=== PATIENT | female | born 1955 | race Caucasian/White ===

== ENCOUNTER → 2016-10-07 06:43 | Outpatient (CLI) | payer BC ==
--- NOTE | ~2016-10-07 | HEMODYNAMI ---
PATIENT:YONAS HERCULES MEDICAL RECORD: [id number] : 53 [id number] ADMISSION DATE: 10/07/16 Generatedon:10/07/201610:35 Patient name: YONAS HERCULES Patient #: [id number] SSN: : 1955 Date of study: 10/07/2016 Page: Of Hemodynamic Procedure Report Patient Data Patient Demographics Procedure consent was obtained First Name: YONAS Gender: Female Last Name: DIOMEDES : 1955 Middle Initial: GOVIND Age: 61 year(s) Patient #: [id number] Race: Unknown Additional ID: [id number] Contact details [address]: [address] [place] [address] State: [place] City: [place] Zip code: [address] Admission Admission Data Admission Date: 10/07/2016 Admission Time: 6:43 Procedure Procedure Types Cath Procedure Peripheral Cath Diagnostic Procedure Venography Extremity Left Lower Ext. Venagram Procedure Description Procedure Date Procedure Date: 10/07/2016 Procedure Start Time: 10:10 Procedure Staff Name Function Elver Elliott MD Performing Physician Tiffany Anderson RT Scrub Teresa Rollins RN Monitor Amaris Bledsoe RN Nurse Mat Magdaleno RT Monitor Procedure Data Cath Procedure Fluoroscopy Diagnostic fluoroscopy Total fluoroscopy Time: 1.6 time: 1.6 min min Contrast Material Contrast Material Type Amount (ml) Isovue 300 25 Isovue 300 90 Hemodynamics Rest Pre Cath Intra NCS Post Cath Procedure Log Time Note 10:02:11 Amaris Bledsoe RN sent for patient. Start room use. 10:02:20 Time tracking: Regular hours 10:02:25 Plan of Care:Hemodynamics will remain stable., Cardiac rhythm will remain stable., Comfort level will be maintained., Respiratory function will remain adequate., Patient/ family verbilizes understanding of procedure., Procedure tolerated without complication., Recovers from procedure without complications.. 10:02:39 Patient received from Outpatients to IR Alert and oriented. Tansferred to table in Supine position. 10:02:41 Warm blankets applied, and kb hugger turned on for patient comfort. 10:02:43 Correct patient and procedure confirmed by team. 10:02:48 Signed procedure consent form obtained from patient. 10:03:07 Pre-procedure instructions explained to patient. 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 He requests local only no sedation. 10:04:39 Lab results completed and on chart. 10:04:46 Physician arrived 10:04:47 --------ALL STOP TIME OUT------ 10:04:49 Final Timeout: patient, procedure, and site verified with staff and physician. All members of the team are in agreement. 10:04:52 Left groin site verified by team. 10:05:04 Left foot site verified by team. 10:05:25 Physical assessment completed. ASA score P 2 - A patient with mild systemic disease as per Elver Elliott MD. 10:05:30 Sedation plan: Local Anesthetic Lidocaine 10:06:12 IV started left foot per Amaris Bledsoe RN #20 angiocath. 10:07:33 Contrast injected via left foot IV per Dr Elliott. Images taken. Decision made to prep left groin. 10:08:43 Left groin prepped and draped in sterile fashion. 10:09:54 Use device set IR Diagnostic 10:09:55 Bag Decanter opened to sterile field. 10:09:56 Sterile Angiographic Pack opened to sterile field. 10:10:19 Left groin area was prepped with chlora-prep and draped in sterile fashion 10:10:21 Sharps counted by scrub and verified by R.N. 10:10:22 Alarms reviewed by R. N. 10:10:26 Procedure started. 10:10:28 Full Disclosure recording started 10:10:32 Local anesthetic to left femoral vein with Lidocaine 1% by Elver Elliott MD.INITIAL ACCESS ONLY 10:20:59 Contrast amount:Isovue 300 90ml. 10:22:14 Procedure ended.(Physican Out) 10:22:28 Fluoroscopy time 01.60 minutes. 10:22:34 Contrast amount:Isovue 300 25ml. 10:22:36 Sharps counted by scrub and verified by R.N. 10:22:38 Insertion/operative site no bleeding no hematoma. 10:22:44 Post-op/insertion site Left Femoral vein dressed using a 4 x 4 and Tegaderm. 10:22:48 Post left femoral vein:stable 10:22:50 Post Procedure Pulses reassessed and unchanged 10:22:53 Post procedure instruction explained to patient.Patient verbalizes understanding. 10:23:20 Procedure and supply charges have been captured, reviewed, submitted and are correct. 10:23:23 Report given to Outpatients. 10:23:26 Patient transfered to Outpatients with Bed. Device Usage Item Name Manufacture Quantity Catalog Hospital Part Current Minimal Lot# / Number Charge Number Stock Stock Serial# Code Bag Decanter Microtek 1 [id number] [employer] Sterile Cardinal 1 [id number] Angiographic Health Pack Signature Audit Wright Stage Time Signature Unsigned Intra-Procedure 10/07/2016 Mat 10:35:23 AM Sharla RT (R) (CV) Signatures Monitor : Teresa Rollins RN Signature : Date : Time : Monitor : Mat Signature : Sharla RT Date : Time : [address] [address]
[2016-10-07 09:48] LABS: CALCIUM 9.1 mg/dL (8.5-10.1); CARBON DIOXIDE 27.9 mmol/L (21.0-32.0); CREATININE - SERUM 1.2 mg/dL (0.6-1.3); POTASSIUM - SERUM 4.9 mmol/L (3.5-5.1)
--- NOTE | 2016-10-07 11:19 | NUR ---
1119-called to IR. 1120-left groin dressing dry and intact, no bleeding, swelling or hematoma. left foot iv site without bleeding or swelling. pedal pulse 2+. denies pain. 1121-sitting up, denies dizziness. resp with ease. Nikolas Shah APN for [facility] here to assess patient and ok to discharge.
== END | disposition home or self-care (01) ==
LOC: D.OPS 06:43 → D.RAD 09:00 → D.OPS 09:00
PROVIDERS: Radiology Diagnostic Radiology
DX: I83.813 Varicose veins of bilateral lower extremities with pain (principal); I87.009 Postthrombotic syndrome without complications of unspecified extremity

== ENCOUNTER → 2019-01-28 13:31 | Outpatient (CLI) | payer BC | END | disposition home or self-care (01) | LOC: D.US 13:31 | PROVIDERS: ATTEND Family Medicine | DX: R60.0 Localized edema (principal) ==

== ENCOUNTER → 2019-04-06 12:15 | Outpatient (CLI) | payer BC ==
[~2019-04-06 12:15] MED LIST: ASCORBIC ACID500 MG PO; CIALIS2.5 MG PO; CLARITIN 10 MG10 MG PO; DILAUDID4 MG PO; GLUCOPHAGE XR750 MG PO; HYDROCODON-ACE1 EA10 PO; LIPITOR10 MG PO; OMEPRAZOLE40 MG PO; VISTARIL50 MG PO; VITAMIN D31000 UNIT PO; VOLTAREN100 GM TOPICAL; XARELTO15 MG PO; ZOFRAN ODT4 MG/UDTAB PO; ZYLOPRIM300 MG PO
[2019-04-30 09:09] VITALS: BMI 34.1
== END | disposition home or self-care (01) ==
LOC: D.MRI 12:15
PROVIDERS: ATTEND Orthopaedic Surgery
DX: M75.121 Complete rotator cuff tear or rupture of right shoulder, not specified as traumatic (principal)

== ENCOUNTER → 2019-04-27 07:15 | Outpatient (CLI) | payer MEDICARE, BC ==
[2019-04-30 09:09] VITALS: BMI 34.1
== END | disposition home or self-care (01) ==
LOC: D.MRI 07:15
PROVIDERS: ATTEND Orthopaedic Surgery
DX: S46.112D Strain of muscle, fascia and tendon of long head of biceps, left arm, subsequent encounter (principal)

== ENCOUNTER 2019-04-30 08:15 | Day surgery (SDC) | payer MEDICARE, BC ==
[2019-04-29 11:54] LABS: HEMATOCRIT 54.5 % (42.0-54.0); HEMOGLOBIN 18.3 g/dL (13.5-17.5); MCH 32.9 pg (26.0-34.0); MCHC 33.6 g/dL (31.0-37.0); MCV 97.8 fL (80.0-100.0); MEAN PLATELET VOLUME 9.8 fL (7.4-10.4); RBC 5.57 10x6/uL (4.20-6.10); RDW 13.4 % (11.5-14.5); WBC 12.5 10x3/uL (4.8-10.8)
[2019-04-29 12:09] LABS: ANION GAP 11.2 mmol/L (8-16); CALCIUM 9.2 mg/dL (8.5-10.1); CARBON DIOXIDE 29.1 mmol/L (21.0-32.0); CREATININE - SERUM 1.1 mg/dL (0.6-1.3); POTASSIUM - SERUM 4.3 mmol/L (3.5-5.1)
[~2019-04-30] VITALS: Ht 188 cm; Wt 120.2 kg
[2019-04-30 09:09] VITALS: BP 146/81; Ht 188 cm; Wt 120.2 kg
[2019-04-30] MEDS ORDERED: XARELTO15 MG PO (09:39)
[2019-04-30] MEDS ORDERED: ZYLOPRIM300 MG PO (09:39)
[2019-04-30] MEDS ORDERED: GLUCOPHAGE XR750 MG PO (09:40)
[2019-04-30] MEDS ORDERED: OMEPRAZOLE40 MG PO (09:40)
[2019-04-30] MEDS ORDERED: CIALIS2.5 MG PO (09:41)
[2019-04-30] MEDS ORDERED: CLARITIN 10 MG10 MG PO (09:41)
[2019-04-30] MEDS ORDERED: LIPITOR10 MG PO (09:41)
[2019-04-30] MEDS ORDERED: HYDROCODON-ACE1 EA10 PO (09:42)
[2019-04-30] MEDS ORDERED: VOLTAREN100 GM TOPICAL (09:42)
[2019-04-30] MEDS ORDERED: ASCORBIC ACID500 MG PO (09:43)
[2019-04-30] MEDS ORDERED: VITAMIN D31000 UNIT PO (09:44)
[2019-04-30 10:23] LABS: BASOPHILS 0.2 % (0-2); EOSINOPHILS 0.4 % (0-7); HEMATOCRIT 54.4 % (42.0-54.0); HEMOGLOBIN 18.2 g/dL (13.5-17.5); IMMATURE GRANULOCYTES 0.4 % (0-5); MCH 32.9 pg (26.0-34.0); MCHC 33.5 g/dL (31.0-37.0); MCV 98.2 fL (80.0-100.0); MEAN PLATELET VOLUME 9.4 fL (7.4-10.4); MONOCYTES 5.8 % (2-11); NEUTROPHILS 73.2 % (40-80); PLATELET COUNT 233 10x3/uL (130-400); RBC 5.54 10x6/uL (4.20-6.10); RDW 13.7 % (11.5-14.5); WBC 10.8 10x3/uL (4.8-10.8)
[2019-04-30] MEDS ORDERED: ZOFRAN ODT4 MG/UDTAB PO (10:34)
[2019-04-30] MEDS ORDERED: DILAUDID4 MG PO (10:34)
[2019-04-30] MEDS ORDERED: VISTARIL50 MG PO (10:34)
--- NOTE | 2019-04-30 15:52 | OP ---
PATIENT NAME: YONAS MCCORMACK MEDICAL RECORD: [id number] :53 LOCATION:[facility] ADMISSION DATE: SURGEON: SHER HINKLE DO DATE OF OPERATION: 04/30/2019 PROCEDURE PERFORMED: Right shoulder rotator cuff repair, biceps tenodesis, labral debridement, subacromial decompression, distal clavicle excision. PREOPERATIVE DIAGNOSES: Right shoulder massive rotator cuff tear, superior labral anterior-posterior tear, subacromial impingement and acromioclavicular joint arthritis. POSTOPERATIVE DIAGNOSES: Right shoulder massive rotator cuff tear, superior labral anterior-posterior tear, subacromial impingement and acromioclavicular joint arthritis. INDICATIONS: Mr. Mccormack is a 64-year-old male who fell walking his dog a couple of weeks ago. He had extensive right arm pain and left elbow pain. He ended up having a radial head fracture, minimally displaced on the left and a massive rotator cuff tear and a SLAP tear on the right. He chose to fix the rotator cuff, in fact caused him the most pain. He was aware of the risks including infection, bleeding, damage to nerves and vessel, retear, need for further surgery, fracture, loss of use of the arm and even and he signed the consent. SURGEON: Sher Hinkle DO DESCRIPTION OF PROCEDURE: The patient was taken to the operative suite; given 900 mg of clindamycin prior to going to the OR. I was assisted by Mery Patrick and René Anderson, both certified assistant in nursing. Once the patient was positioned in left lateral decubitus with the right shoulder up, he was sedated and LMA was placed. The right shoulder was then prepped and draped in sterile fashion. A time-out was performed, everyone was in agreeance with the correct side, site, patient and procedure. We then had the posterior shoulder entered with an 18-gauge spinal needle and insufflated the posterior shoulder with 60 mL of normal saline. A 11-blade scalpel was then used to establish the portal and the trocar was entered into the shoulder joint. The scope was then entered and we saw the massive rotator cuff tear, supraspinatus and infraspinatus. The subscapularis was intact. The SLAP tear was noted to be quite prominent and a type 3. The anterior portal was established with an 18-guage spinal needle and 11-blade scalpel and the trocar was brought in through the anterior portal and a burner brought in, a bicep tenotomy done at that point as well as labral debridement. The rest of the shoulder was inspected and no loose bodies were seen in the inferior gutter. The cartilage was also in good repair. Once the cartilage was in good repair, the scope was switched to the subacromial space. The lateral port was established with an 18-guage spinal needle and 11-blade scalpel and a subacromial decompression was done as well as the distal clavicle excision opening the AC joint, up to approximately 7-mm. The spur on the distal lateral acromion was removed. We then opened over the lateral shoulder, approximately 4 cm to the acromion and careful dissection was made down to the tear, it was noted to be a massive tear. Decortication was done on the humerus and 3 anchors were placed for medial row. The cuff was then bent through and brought over to form a nice repair, two lateral row anchors. The anterior humerus was then addressed. An incision was made on the anterior humerus. Careful dissection was made down to the long head of the biceps tendon. This OPERATIVE REPORT [id number] DIOMEDES,YONAS FAUST was removed out of the incision and whipstitched and then a 2.9 JuggerLoc anchor was placed in the anterior humerus. Then, the whipstitch sutures were tied to the JuggerLoc anchor and then cinched down, bicep placed nicely against the humerus. The excess suture was cut and then tied and then a free needle went through the biceps tendon and tied down the excess tendon and suture was then cut. The site was irrigated as well as the rotator cuff repair site and the both were closed with 2-0 Vicryl in an inverted interrupted fashion, 4-0 Monocryl ran on the skin. The anterior and posterior portals with 4-0 Monocryl in an inverted interrupted fashion with Dermabond placed on the skin. He was then awakened and taken to recovery in stable condition. BLOOD LOSS: Minimal. COMPLICATIONS: None. TRANSINT:[id number] Voice Confirmation ID: [id number] DOCUMENT ID: [id number] SHER HINKLE DO at 3206 CC: [id number] DICTATION DATE: 04/30/19 4525 BATCH UNIT TREATER: 04/30/19 1522 [facility] [address] [place] [id number]
== END 2019-04-30 17:10 | disposition home or self-care (01) ==
LOC: D.OPS 08:15 → D.PAN 09:50 → D.OPS 09:50
PROVIDERS: Anesthesiology; ATTEND Orthopaedic Surgery
DX: M75.101 Unspecified rotator cuff tear or rupture of right shoulder, not specified as traumatic (principal); S43.431A Superior glenoid labrum lesion of right shoulder, initial encounter; M75.41 Impingement syndrome of right shoulder; M19.011 Primary osteoarthritis, right shoulder; X58.XXXA Exposure to other specified factors, initial encounter

== ENCOUNTER → 2019-12-13 21:39 | Outpatient (CLI) | payer MEDICARE, BC ==
[2019-04-30 09:09] VITALS: BMI 34.1
== END | disposition home or self-care (01) ==
LOC: D.LABREF 21:39
PROVIDERS: ATTEND Orthopaedic Surgery
DX: M17.11 Unilateral primary osteoarthritis, right knee (principal)

== ENCOUNTER 2019-12-15 14:42 | Inpatient (IN) | payer MEDICARE, BC ==
[~2019-12-15] VITALS: Ht 188 cm; Wt 119.1 kg
[~2019-12-15 14:42] MED LIST changes: +VITAMIN D1000 UNIT PO; -VITAMIN D31000 UNIT PO
[2019-12-29 09:59] LABS: ANION GAP 7.6 mmol/L (8-16); CALCIUM 9.4 mg/dL (8.5-10.1); CARBON DIOXIDE 31.8 mmol/L (21.0-32.0); CREATININE - SERUM 1.3 mg/dL (0.6-1.3); POTASSIUM - SERUM 4.4 mmol/L (3.5-5.1)
[2019-12-29 10:12] LABS: BASOPHILS 0.2 % (0-2); EOSINOPHILS 1.7 % (0-7); HEMATOCRIT 55.7 % (42.0-54.0); HEMOGLOBIN 18.4 g/dL (13.5-17.5); IMMATURE GRANULOCYTES 0.3 % (0-5); MCH 32.4 pg (26.0-34.0); MCV 98.1 fL (80.0-100.0); MEAN PLATELET VOLUME 9.2 fL (7.4-10.4); MONOCYTES 5.4 % (2-11); NEUTROPHILS 71.4 % (40-80); RBC 5.68 10x6/uL (4.20-6.10); RDW 13.5 % (11.5-14.5); WBC 8.6 10x3/uL (4.8-10.8)
[2019-12-29 10:15] LABS: APTT 27.5 SECONDS (22.8-39.4); INR 1.08 (0.85-1.17)
--- NOTE | 2019-12-29 10:23 | NUR ---
POX- 96% HR- 68 RR-16 BP RA- 114/84
[2019-12-29 10:26] LABS: PLATELET COUNT 170 10x3/uL (130-400)
[2019-12-29] MEDS ORDERED: XARELTO15 MG PO (10:26)
[2019-12-29] MEDS ORDERED: HYDROCODON-ACE1 EA10 PO (10:27)
[2019-12-29] MEDS ORDERED: ACETAMINOPHEN500 M1 PO (10:28)
[2019-12-29] MEDS ORDERED: DEPO TESTOSTERONE IM (10:29)
[2019-12-29] MEDS ORDERED: ASCORBIC ACID500 MG PO (10:30)
[2019-12-29] MEDS ORDERED: OS-CAL500 MG PO (10:30)
[2019-12-29] MEDS ORDERED: MUPIROCIN22 GM TOPICAL (10:31)
[2019-12-29 11:14] LABS: BILIRUBIN NEGATIVE (NEGATIVE); GLUCOSE NEGATIVE (NEGATIVE); KETONE NEGATIVE (NEGATIVE); NITRITE NEGATIVE (NEGATIVE); UROBILINOGEN NORMAL (NORMAL)
[2020-01-04 10:12] VITALS: BP 136/76; BMI 34.5
--- NOTE | 2020-01-04 12:28 | NUR ---
1225 BLOCK HAS BEEN COMPLETED. PT. AWAKE, AT SIDE. O2 2L NC. CALL LIGHT AT BEDSIDE.
--- NOTE | 2020-01-04 12:41 | NUR ---
1240 STATES LEG STILL FEELS NORMAL. O2 2L NC. MONITORING CONTINUES.
--- NOTE | 2020-01-04 12:57 | NUR ---
1255 STATES CANNOT TELL HE HAS HAD A BLOCK, MOVES LEGS WELL IN BED. O2 AT 2L NC. STATES HIS HEART RATE IS HIGHER THAN NORMAL. AT SIDE.
--- NOTE | 2020-01-04 13:45 | NUR ---
PLASMA BLADE AND AQUAMANTYS USED. CAUTERY PAD PLACED ON LEFT THIGH. LOT#[id number] EXP.03/17/2021
[2020-01-04 16:40] VITALS: BP 133/61
[2020-01-04 18:47] VITALS: BP 136/60; Ht 188 cm; Wt 119.1 kg
[2020-01-04 19:30] VITALS: BP 124/60
--- NOTE | 2020-01-04 21:10 | NUR ---
PATIENT IS RESTING COMFORTABLY IN BED. HE IS ALERT AND ORIENTED. CPM ON RIGHT LEG. IV FLUIDS ARE RUNNING. HE IS ON ROOM AIR. HE HAS NO COMPLAINTS AT THIS TIME.
[2020-01-05 00:11] VITALS: BP 104/45
[2020-01-05 04:01] VITALS: BP 142/79
--- NOTE | 2020-01-05 05:18 | NUR ---
PATIENT SLEPT SOME LAST NIGHT. CPM TAKEN OFF LAST NIGHT. PAIN PILL GIVEN THIS AM, AND THEN CPM APPLIED. WE WILL CONTINUE TO MONITOR PAIN LEVEL.
[2020-01-05 07:20] LABS: ANION GAP 11.2 mmol/L (8-16); CALCIUM 8.1 mg/dL (8.5-10.1); CARBON DIOXIDE 26.7 mmol/L (21.0-32.0); CREATININE - SERUM 1.2 mg/dL (0.6-1.3); HEMATOCRIT 47.6 % (42.0-54.0); HEMOGLOBIN 15.6 g/dL (13.5-17.5); MAGNESIUM - SERUM 1.5 mg/dL (1.8-2.4); MCH 31.2 pg (26.0-34.0); MCHC 32.8 g/dL (31.0-37.0); MCV 95.2 fL (80.0-100.0); MEAN PLATELET VOLUME 8.9 fL (7.4-10.4); NEUTROPHILS 78.5 % (40-80); PLATELET COUNT 202 10x3/uL (130-400); POTASSIUM - SERUM 3.9 mmol/L (3.5-5.1)
--- NOTE | 2020-01-05 07:29 | OP ---
PATIENT NAME: YONAS MCCORMACK MEDICAL RECORD: [id number] :53 [facility] ADMISSION DATE:01/04/20 SURGEON: SHER HINKLE DO DATE OF OPERATION: 01/04/2020 PROCEDURE PERFORMED: Right total knee arthroplasty. PREOPERATIVE DIAGNOSIS: Right knee osteoarthritis. POSTOPERATIVE DIAGNOSIS: Right knee osteoarthritis. INDICATIONS: Mr. Mccormack is a 64-year-old male who has had right knee pain for quite some time. Had ACL done over 20 years ago and his right knee pain was getting worse and he had tried all manner of nonoperative treatment including injections, physical therapy and is affecting his activities of daily living. He wanted something done surgically. He is aware of the risks including infection, bleeding, damage to nerve or vessel damage, need for further surgery, continued pain, failure of implants, fracture, blood clots, and even , damage to nerves and vessels in the area. He signed the consent. SURGEON: Sher Hinkle DO DESCRIPTION OF PROCEDURE: The patient was taken to the operative suite, laid in supine position and block by anesthesia in the preoperative area and then taken to the operative suite, given 3 grams Ancef and 80 mg gentamicin preoperatively. He was not given TXA due to blood clot history. He was then sedated and LMA was placed. The right lower extremity was then prepped and draped in sterile fashion. Time out was performed. Everyone was in agreement with the correct side, site, patient, and procedure. We then began by marking out the incision on the anterior knee, made careful dissection down to the capsule and did a medial parapatellar approach. We opened up the knee, removed part of fat pad and milled down the patella. I then drilled into the femur intramedullary canal by the intramedullary guide and cut the distal femur off of it. I then exposed the proximal tibia and cut the proximal tibia as well. Based off the lateral side, this is the lowest side. We then removed that and removed the menisci and it was tight medially. I did release of the MCL. A 10 extension block fit well at that time and then we flexed the knee up and sized the femur to be an 80. I then used the 4-in-1 cutting block and cut the cuts, removed the excess bone. I then floated in the tibia and marked rotation, then drilled the holes for the lug holes in the femur and the holes for the patella and then exposed the tibia sized to be an 83. I removed the old ACL screw in the tibia that was in there and then reamed and punched the tibia with 80 mm fin. Cement was then mixed and placed on the implant and the tibia impacted in place. Excess cement was removed. The femur was then impacted on and the 10 Poly was put in between. He was then brought to extension and the patella was put on as well and the squeezer was used. Excess cement was removed from the patella and the tibia. At that time, a 10% permanent iodine solution with 500 mL normal saline was left in the knee for 3 minutes. This was then irrigated out with over a liter of normal saline. We then trialed the 12 poly; 12 poly fit very well. We then anterior stabilized 12 poly and put that and locked it into place, had good range of motion and good stability in flexion and extension. We then put in Melissa to vancomycin and tobramycin powder in the knee and closed the capsule with #1 pop off Vicryl in [id number] fashion. This was done by myself and Jaime Patrick, certified surgical nursing assistants teacher and then the skin was closed by Jaime Patrick with 2-0 Vicryl in inverted interrupted fashion. Zipline placed on OPERATIVE REPORT [id number] YONAS MCCORMACK the knee. He was dressed with Adaptic, 4 x 4s, ABD, Webril, Tex wrap, awakened and taken to recovery in stable condition. Blood loss approximately 350 mL. He was taken to recovery in stable condition. TRANSINT:[id number] Voice Confirmation ID: [id number] DOCUMENT ID: [id number] SHER HINKLE DO at 0729 CC: [id number] DICTATION DATE: 01/04/20 1502 SEW OUT OPERATOR: 01/04/20 6499 ADM IN [facility] [address] [place] [address]
--- NOTE | 2020-01-05 07:49 | NUR ---
PATIENT ALERT AND ORIENTED. RESTING QUIETLY IN BED. RESPIRATIONS EVEN NON LABORED. NO SIGNS OF DISTRESS NOTED. ON ROOM AIR. IV RIGHT WRIST NORMAL SALINE 50ML/HR. CATRACHITO WRAP ON RIGHT LEG. ON CPM. SCD ON LEFT LOWER EXTREMITY. DENIES FURTHER NEEDS. SIDE RAILS UP X3. CALL LIGHT IN REACH. WILL CONTINUE TO MONITOR FOR SAFETY.
[2020-01-05 08:04] VITALS: BP 135/63
[2020-01-05 13:41] VITALS: BP 139/64
--- NOTE | 2020-01-05 14:25 | NUR ---
PATIENT ALERT AND ORIENTED RESTING IN BED WITH EYES OPEN. RESPIRATIONS EVEN NON LABORED. NO SIGNS OF DISTRESS NOTED. DENIES FURTHER NEEDS. SIDE RAILS UP X3. CALL LIGHT IN REACH. WILL CONTINUE TO MONITOR FOR SAFETY.
--- NOTE | 2020-01-05 18:28 | NUR ---
I have reviewed this patient and I concur with the Shift Assessment completed by the Licensed Practical Nurse today this shift.
--- NOTE | 2020-01-05 18:48 | NUR ---
PATIENT ALERT AND ORIENTED RESTING QUIETLY IN BED WITH EYES CLOSED. RESPRATIONS EVEN NONLABORED. NO SIGNS OF DISTRESS NOTED. DENIES FURTHER NEEDS. SIDE RAILS UP CALL LIGHT IN REACH. WILL CONTINUE TO MONITOR FOR SAFETY.
[2020-01-05 20:00] VITALS: BP 129/46
--- NOTE | 2020-01-05 20:00 | NUR ---
PATIENT RESTING IN BED WATCHING TV. NO S/S OF ACUTE DISTRESS. PATIENT C/O PAIN IN RIGHT KNEE AND HIP, DILAUDID WILL BE GIVEN. PATIENT HAS A RIGHT WRIST IV, 1/2 NORMAL SALINE @ 50 ML/HR. IV IS PATENT WITHOUT REDNESS, SWELLING, OR TENDERNESS. PATIENT IS POST-OP DAY 1 OF A RIGHT KNEE, CATRACHITO BANDAGE AND DRESSING C/D/I. PATIENT HAS A CATRACHITO WRAP ON LEFT LEG. PATIENT USES URINAL AND IS A X1 ASSIST TO THE BATHROOM. CALL LIGHT WITHIN REACH. WILL CONTINUE TO MONITOR.
--- NOTE | 2020-01-05 22:43 | NUR ---
I have reviewed this patient and I concur with the Shift Assessment completed by the Licensed Practical Nurse today this shift.
--- NOTE | 2020-01-06 00:58 | MORECARE ---
CASE MANAGEMENT DISCHARGE SUMMARY PATIENT: YONAS HERCULES UNIT: [id number] ADM DATE: 01/04/20 AGE: 64 : 53 SEX: M ROOM/BED: D.1207 AUTHOR: SUREKHA RUELAS PHYSICIAN: REFERRING PHYSICIAN: MAE HINKLE DO DATE OF SERVICE: 01/06/20 Discharge Plan Patient Name: YONAS HERCULES [facility] [facility] 1955 Planned Disposition: Anticipated Discharge Date: Discharge Date: Expected LOS: Initial Reviewer: [email or web address] Initial Review Date: 01/04/2020 Generated: 01/06/20 1:57 am Patient Name: YONAS HERCULES Page [id number] at 0058 All edits/amendments must be made on the electronic document DICTATION DATE: 01/06/2056 [employer] TECHNICIAN: CORBIN 01/06/2056 RPT#: [id number] DC DATE: STATUS: ADM IN [facility] [address] [place] [address] END OF REPORT
[2020-01-06 04:00] VITALS: BP 123/68
--- NOTE | 2020-01-06 05:15 | NUR ---
PATIENT GIVEN DILAUDID AND PLACED ON CPM MACHINE. NO S/S OF ACUTE DISTRESS. NO C/O AT THIS TIME. CALL LIGHT WITHIN REACH. WILL CONTINUE TO MONITOR.
[2020-01-06 05:17] LABS: HEMATOCRIT 45.6 % (42.0-54.0); HEMOGLOBIN 15.2 g/dL (13.5-17.5); LYMPHOCYTES 15.6 % (15-50); MCH 31.7 pg (26.0-34.0); MCHC 33.3 g/dL (31.0-37.0); MEAN PLATELET VOLUME 8.4 fL (7.4-10.4); NEUTROPHILS 74.1 % (40-80); PLATELET COUNT 186 10x3/uL (130-400); RDW 13.3 % (11.5-14.5)
[2020-01-06 05:22] LABS: ANION GAP 9.9 mmol/L (8-16); CALCIUM 8.1 mg/dL (8.5-10.1); CREATININE - SERUM 1.2 mg/dL (0.6-1.3); MAGNESIUM - SERUM 1.6 mg/dL (1.8-2.4); POTASSIUM - SERUM 3.9 mmol/L (3.5-5.1)
--- NOTE | 2020-01-06 07:10 | NUR ---
PATIENT ALERT AND ORIENTED. RESTING QUIETLY IN BED WITH EYES OPEN. REPIRATIONS EVEN NON LABORED. NO SIGNS OF DISTRESS NOTED. CATRACHITO WRAP ON RIGHT LEG AND UPPER LEFT LEG. CLEAN DRY IN TACT. IV RIGHT WRIST NORMAL SALINE 50ML/HR. PATENT. SCDS ON LEFT LEG. ON CPM. DENIES FURHTER NEEDS. SIDE RAILS UP X3. CALL LIGHT IN REACH. WILL CONTINUE TO MONITOR FOR SAFETY.
[2020-01-06 07:52] VITALS: BP 152/72
--- NOTE | 2020-01-06 11:45 | NUR ---
PATIENT ALERT AND ORIENTED. FAMILY AT BEDSIDE. RESPIRATIONS EVEN NON LABORED. NO SIGNS OF DISTRESS NOTED. LAYING QUIETLY IN BED WATCHING TV. LOW MAG 1.6. PO MAG GIVEN AND TOLERATED. DENIES FURTHER NEEDS. SIDE RAILS UP. CALL LIGHT IN REACH. WILL CONTINUE TO MONITOR FOR SAFETY.
[2020-01-06] MEDS ORDERED: oxyCODONE IR PO (13:11)
[2020-01-06] MEDS ORDERED: VISTARIL50 MG PO (13:11)
--- NOTE | 2020-01-06 14:36 | MORECARE ---
CASE MANAGEMENT DISCHARGE SUMMARY PATIENT: YONAS HERCULES UNIT: [id number] ADM DATE: 01/04/20 AGE: 64 : 53 SEX: M ROOM/BED: D.1207 AUTHOR: SUREKHA RUELAS PHYSICIAN: REFERRING PHYSICIAN: MAE HINKLE DO DATE OF SERVICE: 01/06/20 Discharge Plan Patient Name: YONAS HERCULES [facility] [facility] 1955 Planned Disposition: Home or Self Care Anticipated Discharge Date: Discharge Date: Expected LOS: Initial Reviewer: [email or web address] Initial Review Date: 01/04/2020 Generated: 01/06/20 3:36 pm DCPIA - Discharge Planning Initial Assessment Updated by [email or web address]: Uyen Bowden on 01/06/20 2:35 pm * Is the patient Alert and Oriented? Yes * How many steps to enter\exit or inside your home? * PCP Maria Teresa URBANO * Pharmacy [facility] * Preadmission Environment Home with Family * ADLs Independent * Equipment Rolling Walker Shower Chair Walker * Other Equipment CPM * List name and contact numbers for known caregivers / representatives who currently or will assist patient after discharge: RAFA ( SPOUSE) [phone] * Verbal permission to speak to the caregivers and representatives has been obtained from the patient. N/A * Community resources currently utilized None * Additional services required to return to the preadmission environment? Yes * Can the patient safely return to the preadmission environment? Yes * Has this patient been hospitalized within the prior 30 days at any hospital? No Last DP export: 01/05/20 11:58 p Patient Name: YONAS HERCULES Page [id number] at 1436 All edits/amendments must be made on the electronic document DICTATION DATE: 01/06/20 1436 MANAGER LABORATORY: CORBIN 01/06/20 1436 RPT#: [id number] DC DATE: STATUS: ADM IN [facility] [address] [place] [address] END OF REPORT
--- NOTE | 2020-01-06 14:43 | MORECARE ---
CASE MANAGEMENT DISCHARGE SUMMARY PATIENT: YONAS HERCULES UNIT: [id number] ADM DATE: 01/04/20 AGE: 64 : 53 SEX: M ROOM/BED: D.1207 AUTHOR: SUREKHA RUELAS PHYSICIAN: REFERRING PHYSICIAN: MAE HINKLE DO DATE OF SERVICE: 01/06/20 Discharge Plan Patient Name: YONAS HERCULES Facility: [facility]:[place] : 1955 Planned Disposition: Home or Self Care Anticipated Discharge Date: Discharge Date: Expected LOS: Initial Reviewer: [email or web address] Initial Review Date: 01/04/2020 Generated: 01/06/20 3:42 pm Comments DCP- Discharge Planning Updated by [email or web address]: Uyen Bowden on 01/06/20 1:[address] Patient Name: YONAS HERCULES Admission Status: Elective Accout number: [id number] Admission Date: 01-04-2020 : 1955 Admission Diagnosis:UNILATERAL PRIMARY OSTEOARTHRITIS, RIGHT KNEE Attending: MAE HINKLE Current LOS: 2 Anticipated DC Date: Planned Disposition: Home or Self Care Primary Insurance: MEDICARE A & B Discharge Planning Comments: CM met with patient to complete initial dc planning assessment. CM educated patient on the CM role and verbal consent given by patient to complete assessment. Patient lives at home with his spouse where he is independent with his care. At discharge patient plans to return home and feels this is a safe discharge. 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 CM discussed availability of home health, rehab services, and medical equipment. [facility]. I called and spoke with Kavin, his first appointment is set for 12:30 on 01/07/20. The patient will get a copy of his prescription and appointment time. Patient has all of his DME set up and delivered. Patient denied known discharge needs at this time. CM will continue to follow and will assist as needed with dc plans/needs. Mental Health Director: Uyen Bowden DCPIA - Discharge Planning Initial Assessment Updated by [email or web address]: Uyen Bowden on 01/06/20 2:35 pm * Is the patient Alert and Oriented? Yes * How many steps to enter\exit or inside your home? * PCP Maria Teresa URBANO * Pharmacy [facility] * Preadmission Environment Home with Family * ADLs Independent * Equipment Rolling Walker Shower Chair Walker * Other Equipment CPM * List name and contact numbers for known caregivers / representatives who currently or will assist patient after discharge: RAFA ( SPOUSE) [phone] * Verbal permission to speak to the caregivers and representatives has been obtained from the patient. N/A * Community resources currently utilized None * Additional services required to return to the preadmission environment? Yes * Can the patient safely return to the preadmission environment? Yes * Has this patient been hospitalized within the prior 30 days at any hospital? No Last DP export: 01/06/20 1:36 p Patient Name: YONAS HERCULES Page 56581 at 1443 All edits/amendments must be made on the electronic document DICTATION DATE: 01/06/201441 REWIND OPERATOR: CORBIN 01/06/201441 RPT#: [id number] DC DATE: STATUS: ADM IN [facility] [address] [place] [address] END OF REPORT
--- NOTE | 2020-01-06 14:50 | MORECARE ---
CASE MANAGEMENT DISCHARGE SUMMARY PATIENT: YONAS HERCULES UNIT: [id number] ADM DATE: 01/04/20 AGE: 64 : 53 SEX: M ROOM/BED: D.1207 AUTHOR: SUREKHA RUELAS PHYSICIAN: REFERRING PHYSICIAN: MAE HINKLE DO DATE OF SERVICE: 01/06/20 Discharge Plan Patient Name: YONAS HERCULES Facility: [facility]:[place] : 1955 Planned Disposition: Home or Self Care Anticipated Discharge Date: Discharge Date: Expected LOS: Initial Reviewer: [email or web address] Initial Review Date: 01/04/2020 Generated: 01/06/20 3:49 pm Comments DCP- Discharge Planning Updated by [email or web address]: Uyen Bowden on 01/06/20 1:[address] Patient Name: YONAS HERCULES Admission Status: Elective Accout number: [id number] Admission Date: 01-04-2020 : 1955 Admission Diagnosis:UNILATERAL PRIMARY OSTEOARTHRITIS, RIGHT KNEE Attending: MAE HINKLE Current LOS: 2 Anticipated DC Date: Planned Disposition: Home or Self Care Primary Insurance: MEDICARE A & B Discharge Planning Comments: CM met with patient to complete initial dc planning assessment. CM educated patient on the CM role and verbal consent given by patient to complete assessment. Patient lives at home with his spouse where he is independent with his care. At discharge patient plans to return home and feels this is a safe discharge. 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 CM discussed availability of home health, rehab services, and medical equipment. He would like to [facility]. I called and spoke with Kavin, his first appointment is set for 12:30 on 01/07/20. The patient will get a copy of his prescription and appointment time. Patient has all of his DME set up and delivered. Patient denied known discharge needs at this time. CM will continue to follow and will assist as needed with dc plans/needs. Graduate Research Assistant: Uyen Bowden DCPIA - Discharge Planning Initial Assessment Updated by [email or web address]: Uyen Bowden on 01/06/20 2:35 pm * Is the patient Alert and Oriented? Yes * How many steps to enter\exit or inside your home? * PCP Maria Teresa URBANO * Pharmacy [facility] * Preadmission Environment Home with Family * ADLs Independent * Equipment Rolling Walker Shower Chair Walker * Other Equipment CPM * List name and contact numbers for known caregivers / representatives who currently or will assist patient after discharge: RAFA ( SPOUSE) [phone] * Verbal permission to speak to the caregivers and representatives has been obtained from the patient. N/A * Community resources currently utilized None * Additional services required to return to the preadmission environment? Yes * Can the patient safely return to the preadmission environment? Yes * Has this patient been hospitalized within the prior 30 days at any hospital? No External Providers External Provider: [facility] Next Contact Date: Service Request Date: Service Type: Resolution: Reviewer: Comments: Last DP export: 01/06/20 1:43 p Patient Name: YONAS HERCULES Page 53513 at 1450 All edits/amendments must be made on the electronic document DICTATION DATE: 01/06/201448 DIRECTOR TELEHEALTH: CORBIN 01/06/201448 RPT#: [id number] DC DATE: STATUS: ADM IN [facility] [address] [place] [address] END OF REPORT
--- NOTE | 2020-01-06 16:48 | NUR ---
WENT OVER DISCHARGE INFORMATION WITH PATIENT AND FAMILY. ANSWERED PATIENT AND FAMILIES QUESTIONS. PATIENT SIGNED OFF ON FORMS. IV DC. TOOK PATIENT DOWN AND HELPED TRANSFER TO CAR WITH NO PROBLEMS. PATIENT DISCHARGED HOME.
--- NOTE | 2020-01-07 09:31 | MORECARE ---
CASE MANAGEMENT DISCHARGE SUMMARY PATIENT: YONAS HERCULES UNIT: [id number] ADM DATE: 01/04/20 AGE: 64 : 53 SEX: M ROOM/BED: D.1207 AUTHOR: SUREKHA RUELAS PHYSICIAN: REFERRING PHYSICIAN: MAE HINKLE DO DATE OF SERVICE: 01/07/20 Discharge Plan Patient Name: YONAS HERCULES Facility: [facility]:[place] : 1955 Planned Disposition: Home or Self Care Anticipated Discharge Date: Discharge Date: 01/06/2020 Expected LOS: Initial Reviewer: [email or web address] Initial Review Date: 01/04/2020 Generated: 01/07/20 10:31 am Comments DCP- Discharge Planning Updated by [email or web address]: Uyen Bowden on 01/06/20 1:[address] Patient Name: YONAS HERCULES Admission Status: Elective Accout number: [id number] Admission Date: 01-04-2020 : 1955 Admission Diagnosis:UNILATERAL PRIMARY OSTEOARTHRITIS, RIGHT KNEE Attending: MAE HINKLE Current LOS: 2 Anticipated DC Date: Planned Disposition: Home or Self Care Primary Insurance: MEDICARE A & B Discharge Planning Comments: CM met with patient to complete initial dc planning assessment. CM educated patient on the CM role and verbal consent given by patient to complete assessment. Patient lives at home with his spouse where he is independent with his care. At discharge patient plans to return home and feels this is a safe discharge. 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 CM discussed availability of home health, rehab services, and medical equipment. He would like to [facility]. I called and spoke with Kavin, his first appointment is set for 12:30 on 01/07/20. The patient will get a copy of his prescription and appointment time. Patient has all of his DME set up and delivered. Patient denied known discharge needs at this time. CM will continue to follow and will assist as needed with dc plans/needs. Bottom Presser: Uyen Bowden DCPIA - Discharge Planning Initial Assessment Updated by [email or web address]: Uyen Bowden on 01/06/20 2:35 pm * Is the patient Alert and Oriented? Yes * How many steps to enter\exit or inside your home? * PCP Maria Teresa URBANO * [facility] * Preadmission Environment Home with Family * ADLs Independent * Equipment Rolling Walker Shower Chair Walker * Other Equipment CPM * List name and contact numbers for known caregivers / representatives who currently or will assist patient after discharge: RAFA ( SPOUSE) [phone] * Verbal permission to speak to the caregivers and representatives has been obtained from the patient. N/A * Community resources currently utilized None * Additional services required to return to the preadmission environment? Yes * Can the patient safely return to the preadmission environment? Yes * Has this patient been hospitalized within the prior 30 days at any hospital? No Last DP export: 01/06/20 1:50 p Patient Name: YONAS HERCULES Page 05371 at 0931 All edits/amendments must be made on the electronic document DICTATION DATE: 01/07/20930 SKEET OPERATOR: CORBIN 01/07/20930 RPT#: [id number] DC DATE:01/06/20 STATUS: DIS IN [facility] [address] [place] [address] END OF REPORT
== END 2020-01-06 17:24 | disposition home or self-care (01) | DRG 470 ==
LOC: D.M3 01-04 09:50 → D.SDCHOLD 01-04 09:50 → D.M3 01-04 15:25
PROVIDERS: Family Medicine; ADMIT Orthopaedic Surgery; ATTEND Orthopaedic Surgery
PROC: 0SRC0J9 Replacement of Right Knee Joint with Synthetic Substitute, Cemented, Open Approach (ICD-10-PCS; principal; 2020-01-04 12:00)
DX: M17.11 Unilateral primary osteoarthritis, right knee (principal); D68.2 Hereditary deficiency of other clotting factors; E11.65 Type 2 diabetes mellitus with hyperglycemia; Z86.718 Personal history of other venous thrombosis and embolism; Z87.891 Personal history of nicotine dependence

== ENCOUNTER → 2019-12-17 12:32 | Outpatient (CLI) | payer MEDICARE, BC ==
[2019-04-30 09:09] VITALS: BMI 34.1
--- NOTE | ~2019-12-17 | HEMODYNAMI ---
PATIENT:YONAS HERCULES MEDICAL RECORD: [id number] : 53 [id number] ADMISSION DATE: 12/17/19 Generatedon:12/17/201913:54 Patient name: YONAS HERCULES Patient #: [id number] SSN: : 1955 Date of study: 12/17/2019 Page: Of Hemodynamic Procedure Report Patient Data Patient Demographics Procedure consent was obtained First Name: YONAS Gender: Male Last Name: DIOMEDES : 1955 Middle Initial: GOVIND Age: 64 year(s) Patient #: [id number] Race: Unknown Additional ID: [id number] Contact details Address: [address] [place] [address] State: [place] City: [place] Zip code: [address] Admission Admission Data Admission Date: 12/17/2019 Admission Time: 12:32 Procedure Procedure Types Cath Procedure Peripheral Cath Diagnostic Procedure Miscellaneous Aspiration/Injection (Joint) Procedure Description Procedure Date Procedure Date: 12/17/2019 Procedure Start Time: 13:29 Procedure Staff Name Function Mat Magdlaeno RT Monitor Elver Elliott MD Performing Physician Elmira Ku RT Supervisor Sandblaster Procedure Data Cath Procedure Fluoroscopy Diagnostic fluoroscopy Total fluoroscopy Time: 0.2 time: 0.2 min min Diagnostic fluoroscopy Total fluoroscopy dose: 5 dose: 5 mGy mGy Hemodynamics Rest Pre Cath Intra NCS Post Cath Procedure Log Time Note 13:18:04 Mat Magdaleno RT (R) (CV) sent for patient. Start room use. 13:18:11 Time tracking: Regular hours (M-F 7:00 - 5:00) 13:18:21 Patient received from Outpatients to IR Alert and oriented. Tansferred to table in Supine position. 13:18:24 Signed procedure consent form obtained from patient. 13:18:25 Correct patient and procedure confirmed by team. 13:18:26 - 13:18:27 Pre-op teaching completed and patient verbalized understanding. 13:18:27 Pre-procedure instructions explained to patient. 13:18:30 Family in waiting room. 13:18:56 Left Hip was prepped with betadine and draped in sterile fashion. 13:26:07 SAFE-T PLUS MYELOGRAM TRAY opened to sterile field. 13:29:17 --------ALL STOP TIME OUT------ 13:29:17 Physician arrived 13::18 Final Timeout: patient, procedure, and site verified with staff and physician. All members of the team are in agreement. 13:29:25 Left groin site verified by team. 13:29:32 Sedation plan: Local Anesthetic Medication:Lidocaine 13:29:41 Full Disclosure recording started 13:29:41 Procedure started. 13:42:06 steroid injected into Left hip 13:45:23 Procedure ended.(Physican Out) 13:45:41 Fluoroscopy time 00.20 minutes. 13:45:47 Fluoroscopy dose: 5 mGy 13:45:47 Flurop Dose total: 5 13:45:51 Procedure and supply charges have been captured, reviewed, submitted an d are correct. 13:46:51 Full Disclosure recording stopped Device Usage Item Name Manufacture Quantity Catalog Hospital Part Current Minimal Lot# / Number Charge Number Stock Stock Serial# Code SAFE-T CareFusion 1 [id number] PLUS MYELOGRAM TRAY Signature Audit [place] Stage Time Signature Unsigned Intra-Procedure 12/17/2019 Elmira Ku 1:54:31 PM RT(R) [facility] [address] [place] [address]
[~2019-12-17 12:32] MED LIST changes: -VITAMIN D1000 UNIT PO; +VITAMIN D31000 UNIT PO
== END | disposition home or self-care (01) ==
LOC: D.RAD 12:32
PROVIDERS: ATTEND Orthopaedic Surgery
DX: M16.12 Unilateral primary osteoarthritis, left hip (principal)

== ENCOUNTER → 2020-04-11 12:37 | Outpatient (CLI) | payer MEDICARE, BC ==
[2020-01-04 18:47] VITALS: BMI 33.7
--- NOTE | ~2020-04-11 | HEMODYNAMI ---
PATIENT:YONAS EHRCULES MEDICAL RECORD: [id number] : 53 [id number] ADMISSION DATE: 04/11/20 Generatedon:04/11/202014:13 Patient name: YONAS HERCULES Patient #: [id number] SSN: : 1955 Date of study: 04/11/2020 Page: Of Hemodynamic Procedure Report Patient Data Patient Demographics Procedure consent was obtained First Name: YONAS Gender: Male Last Name: DIOMEDES : 1955 Middle Initial: GOVIND Age: 64 year(s) Patient #: [id number] Race: Unknown Additional ID: [id number] Contact details Address: [address] [place] [address] State: [place] City: [place] Zip code: [address] Admission Admission Data Admission Date: 04/11/2020 Admission Time: 12:37 Procedure Procedure Types Cath Procedure Peripheral Cath Diagnostic Procedure Miscellaneous Aspiration/Injection (Joint) Procedure Description Procedure Date Procedure Date: 04/11/2020 Procedure Start Time: 14:03 Procedure Staff Name Function Sher Neville MD Performing Physician Mat Magdaleno RT Monitor Procedure Data Cath Procedure Fluoroscopy Diagnostic fluoroscopy Total fluoroscopy Time: 0.2 time: 0.2 min min Diagnostic fluoroscopy Total fluoroscopy dose: 4 dose: 4 mGy mGy Contrast Material Contrast Material Type Amount (ml) Isovue 200 8 Hemodynamics Rest Pre Cath Intra NCS Post Cath Procedure Log Time Note 13:33:15 Mat Magdaleno RT (R) (CV) sent for patient. Start room use. 13:33:32 Patient received from Other to IR Alert and oriented. Tansferred to table in Supine position. 13:33:35 Signed procedure consent form obtained from patient. 13:33:37 Correct patient and procedure confirmed by team. 13:33:38 Full Disclosure recording started 13:33:39 - 13:33:40 Pre-procedure instructions explained to patient. 13:33:41 Pre-op teaching completed and patient verbalized understanding. 13:33:53 NO ALLERGIES 13:33:57 Is patient on blood thinner?No 13:34:29 SAFE-T PLUS MYELOGRAM TRAY opened to sterile field. 13:58:46 Left Hip was prepped with chlora-prep and draped in sterile fashion. 14:02:25 Physician arrived 14:02:26 --------ALL STOP TIME OUT------ 14:02:26 Final Timeout: patient, procedure, and site verified with staff and physician. All members of the team are in agreement. 14:02:31 Left groin site verified by team. 14:02:36 Sedation plan: Local Anesthetic Medication:Lidocaine 14:02:44 Procedure started. 14:03:02 Local anesthetic to Left Hip with Lidocaine 1% by Sher Neville MD.INITIAL ACCESS ONLY 14:10:46 Procedure ended.(Physican Out) 14:11:59 Fluoroscopy time 00.20 minutes. 14:12:03 Fluoroscopy dose: 4 mGy 14:12:03 Flurop Dose total: 4 14:12:40 Contrast amount:Isovue 200 8ml. 14:13:02 BANDAIDE APPLIED SITE STABLE PT SENT HOME Device Usage Item Name Manufacture Quantity Catalog Hospital Part Current Minimal Lot# / Number Charge Number Stock Stock Serial# Code SAFE-T [employer] 1 [id number] PLUS MYELOGRAM TRAY Signature Audit [place] Stage Time Signature Unsigned Intra-Procedure 04/11/2020 Mat 2:13:32 PM Sharla RT (R) (CV) [facility] [address] [place] [address]
[~2020-04-11 12:37] MED LIST changes: +ACETAMINOPHEN500 M1 PO; +DEPO TESTOSTERONE IM; +MUPIROCIN22 GM TOPICAL; +OS-CAL500 MG PO; +VITAMIN D1000 UNIT PO; -VITAMIN D31000 UNIT PO; +oxyCODONE IR PO
== END | disposition home or self-care (01) ==
LOC: D.RAD 12:37
PROVIDERS: ATTEND Orthopaedic Surgery
DX: M16.12 Unilateral primary osteoarthritis, left hip (principal)

== ENCOUNTER → 2020-09-13 08:17 | Outpatient (CLI) | payer MEDICARE, BC ==
[2020-01-04 18:47] VITALS: BMI 33.7
[2020-09-13 09:20] LABS: LDL-HDL RATIO 0.8 ratio (1.5-3.5)
== END | disposition home or self-care (01) ==
LOC: D.LAB 08:17
PROVIDERS: ATTEND Internal Medicine Gastroenterology
DX: K76.0 Fatty (change of) liver, not elsewhere classified (principal)

== ENCOUNTER → 2020-11-23 07:59 | Outpatient (CLI) | payer MEDICARE, BC ==
[2020-01-04 18:47] VITALS: BMI 33.7
[2020-11-23 08:40] LABS: BILIRUBIN - DIRECT 0.25 mg/dL (0.00-0.30); BILIRUBIN - INDIRECT 0.79 mg/dL (0.00-1.00); BILIRUBIN - TOTAL 1.04 mg/dL (0.2-1.3); PROTEIN - SERUM 7.4 g/dL (6.4-8.2)
== END | disposition home or self-care (01) ==
LOC: D.US 11-21 10:15
PROVIDERS: ATTEND Internal Medicine Gastroenterology
DX: K76.0 Fatty (change of) liver, not elsewhere classified (principal)